=== PATIENT | female | born 1965 | race Caucasian/White ===

== ENCOUNTER → 2018-04-18 | Outpatient (CLI) | payer MEDICARE ==
--- NOTE | 2018-04-18 12:02 | RADIOLOGY REPORT (SQ) ---
EXAM DESCRIPTION: FOOT RIGHT 2 VIEWS COMPLETED DATE/TIME: 04/18/2018 11:44 am REASON FOR STUDY: CHRONIC PAIN IN RT FOOT M79.671 PAIN IN RIGHT FOOT COMPARISON: None. NUMBER OF VIEWS: Three views. TECHNIQUE: AP, lateral and oblique radiographic images acquired of the right foot. LIMITATIONS: None. FINDINGS: MINERALIZATION: Normal. BONES: No acute fracture or dislocation. Accessory navicular ossicle, normal anatomic variant. JOINTS: A few small opaque densities overlying the first cuneiform -metatarsal joint may be related prior injury. SOFT TISSUES: No soft tissue swelling. No foreign body. OTHER: No other significant finding. IMPRESSION: 1. No acute osseous findings. 2. Additional findings as above. TECHNICAL DOCUMENTATION: JOB ID: [id number] [employer]- All Rights Reserved Reading location - IP/workstation name: [email or web address]
== END ==
LOC: OD 11:20
PROVIDERS: ATTEND Family Medicine
DX: M79.671 Pain in right foot (principal)

== ENCOUNTER → 2019-11-12 | Outpatient (CLI) | payer MEDICARE ==
--- NOTE | 2019-11-12 16:16 | RADIOLOGY REPORT (SQ) ---
EXAM DESCRIPTION: C SP 4 OR 5 VIEWS IMAGES COMPLETED DATE/TIME: 11/12/2019 3:54 pm REASON FOR STUDY: CERVICAL RADICULOPATHY M54.12 RADICULOPATHY, CERVICAL REGION COMPARISON: None. NUMBER OF VIEWS: Five views. TECHNIQUE: AP, lateral, obliques and odontoid radiographic images acquired of the cervical spine. LIMITATIONS: None. FINDINGS: MINERALIZATION: Normal. ALIGNMENT: Anatomic. VERTEBRAE: Vertebral bodies of normal height. DISCS: Disc space narrowing with osteophytes at C6-C7. FORAMINA: Foraminal narrowing at C6-C7 due to osteophytes. LATERAL AND POSTERIOR ELEMENTS: Facets, lateral masses and spinous processes without significant find ings. HARDWARE: None in the spine. SOFT TISSUES: No masses or calcifications. Lung apices clear. OTHER: No other significant finding. IMPRESSION: DEGENERATIVE DISC DISEASE AT C6-C 7. NO ACUTE FINDINGS. TECHNICAL DOCUMENTATION: JOB ID: [id number] [employer]- All Rights Reserved Reading location - IP/workstation name: [email or web address]
== END ==
LOC: OD 15:32
PROVIDERS: ATTEND Family Medicine
DX: M50.123 Cervical disc disorder at C6-C7 level with radiculopathy (principal)
CPT/HCPCS: 72050